=== PATIENT | female | born 1945 | race Two or more races ===

== ENCOUNTER 2023-05-28 00:17 | Inpatient (IN) | payer MEDICARE, OTHER ==
[~2023-05-28] VITALS: Ht 167.6 cm; Wt 74.8 kg
[2023-05-28] MEDS ORDERED: ADENOSINE 6 MG/2 ML VIAL IVP ONE ×3 (01:00→02:00)
[2023-05-28] MEDS ORDERED: ADENOSINE 6 MG/2 ML VIAL ONE ×4 (01:00→01:10)
[2023-05-28] MEDS ORDERED: PROPOFOL 20 ML IV ONE (01:14)
[2023-05-28 01:55] LABS: BASOPHILS # (AUTO) 0.1 K/uL (0.0-0.2); BASOPHILS % (AUTO) 1.2 % (0.0-2.0); EOSINOPHILS # (AUTO) 0.1 K/uL (0.0-0.7); EOSINOPHILS % (AUTO) 1.3 % (0.0-6.0); HEMATOCRIT 39 % (33-45); HEMOGLOBIN 12.7 g/dL (11.5-14.8); LYMPHOCYTES # (AUTO) 1.4 K/uL (0.8-4.8); LYMPHOCYTES % (AUTO) 18.5 % (20.0-44.0); MEAN CORPUSCULAR HEMOGLOBIN 31 PG (26.0-33.0); MEAN CORPUSCULAR HGB CONC 33 g/dl (31.0-36.0); MEAN CORPUSCULAR VOLUME 94 fL (82-100); MONOCYTES # (AUTO) 0.6 K/uL (0.1-1.30); MONOCYTES % (AUTO) 8.5 % (2.0-12.0); NEUTROPHILS # (AUTO) 5.2 K/uL (1.8-8.9); NEUTROPHILS % (AUTO) 70.5 % (43.0-81.0); PLATELET COUNT (AUTO) 295 K/uL (150-450); RED BLOOD CELL COUNT(AUTO) 4.14 MIL/uL (4.0-5.2); RED CELL DISTRIBUTION WIDTH 13.8 % (11.5-15.0); WHITE BLOOD COUNT (AUTO) 7.4 K/uL (4.3-11.0)
[2023-05-28] MEDS ORDERED: PROPOFOL 200 MG/20 ML VIAL IV ONE (02:00)
[2023-05-28 02:16] LABS: CALCIUM, SERUM 9.2 mg/dL (8.5-10.1); CARBON DIOXIDE 26 mmol/L (21-32); CHLORIDE 99 mmol/L (98-107); CREATININE 1.9 mg/dL (0.6-1.3); GLUCOSE 114 mg/dL (74-106); POTASSIUM 4.1 mmol/L (3.5-5.1); SODIUM SERUM 135 mmol/L (136-145); UREA NITROGEN, BLOOD 26 mg/dL (7-18)
[2023-05-28 02:19] LABS: ALANINE AMINOTRANSFERASE 18 U/L (12-78); ALBUMIN 3.3 g/dL (3.4-5.0); ALKALINE PHOSPHATASE 79 U/L (46-116); ASPARTATE AMINOTRANSFERASE 22 U/L (15-37); BILIRUBIN,DIRECT 0.2 mg/dL (0.0-0.2); BILIRUBIN,TOTAL 0.8 mg/dL (0.2-1.0); NT-PRO BNP 983 pg/mL (0-125); TOTAL PROTEIN, SERUM 7.5 g/dL (6.4-8.2)
[2023-05-28] MEDS ORDERED: IV NS 0.9% 1,000 ML IV PRN (02:30)
[2023-05-28] MEDS ORDERED: MAGNESIUM HYDROXIDE 30 ML UDC PO PRN (02:30)
[2023-05-28] MEDS ORDERED: HYDROCODONE/APAP 5/325MG TABLET PO PRN (02:30)
[2023-05-28] MEDS ORDERED: ACETAMINOPHEN 325 MG TABLET PO PRN (02:30)
[2023-05-28] MEDS ORDERED: MORPHINE SULFATE INJ 2 MG/ML DISP.SYRIN IV PRN (02:30)
[2023-05-28] MEDS ORDERED: ONDANSETRON HCL/PF 4 MG/2 ML VIAL IVP PRN (02:30)
[2023-05-28] MEDS ORDERED: TEMAZEPAM 15 MG CAPSULE PO PRN (02:30)
[2023-05-28] MEDS ORDERED: Z GUARD REMEDY 4 OZ OINT TP PRN (02:30)
[2023-05-28] MEDS ORDERED: MAG HYDROX/AL HYDROX/SIMETH 30 ML UDC PO PRN (02:30)
[2023-05-28] MEDS ORDERED: ASPIRIN 325 MG TABLET ONE (02:42)
[2023-05-28] MEDS: ASPIRIN 325 MG TABLET PO SCH ×2 (02:47→08:26)
[2023-05-28 03:00] VITALS: BP 150/79; TEMP 99.7; O2SAT 97
[2023-05-28 03:30] VITALS: BP 150/79; TEMP 99.7; O2SAT 97
[2023-05-28 07:00] VITALS: BP 154/100; TEMP 98.8; O2SAT 96
[2023-05-28] MEDS: PANTOPRAZOLE 40 MG TABLET.DR PO SCH (08:26)
[2023-05-28] MEDS ORDERED: PRED20TA PO (08:35)
[2023-05-28] MEDS ORDERED: RIVA10TA PO (08:35)
[2023-05-28] MEDS ORDERED: MYCO250C PO (08:35)
[2023-05-28] MEDS ORDERED: CYCL50CA6 PO (08:35)
[2023-05-28] MEDS ORDERED: GABA-532 PO (08:35)
[2023-05-28] MEDS: GABAPENTIN 100 MG CAPSULE PO SCH ×2 (10:25→18:05)
[2023-05-28] MEDS: RIVAROXABAN 15 MG TABLET PO SCH (10:27)
[2023-05-28] MEDS: predniSONE 20 MG TABLET PO SCH (10:33)
[2023-05-28] MEDS: MYCOPHENOLATE MOFETIL 250 MG CAPSULE PO SCH ×2 (10:45→18:05)
[2023-05-28] MEDS: VITAMINS A AND D 56.7 GM TUBE TP SCH (10:45)
[2023-05-28] MEDS: METOPROLOL TARTRATE 50 MG TABLET PO SCH ×2 (12:05→18:05)
[2023-05-28] MEDS ORDERED: IV 1/2NS 1000 ML 1,000 ML IV PRN (14:00)
[2023-05-28 16:00] VITALS: BP 145/83; TEMP 99.3; O2SAT 94
[2023-05-28 20:00] VITALS: BP 118/72; TEMP 98.9; O2SAT 93
[2023-05-28] MEDS: NITROGLYCERIN 0.4 MG/TAB BOTTLE SL PRN ×3 (22:29→22:44)
[2023-05-29] VITALS (7 sets, daily range): BP systolic 101–151; BP diastolic 67–98; TEMP 97.4–98.8; O2SAT 91–98
[2023-05-29] MEDS: METOPROLOL TARTRATE 50 MG TABLET PO SCH ×4 (00:27→18:03)
[2023-05-29 07:28] LABS: BASOPHILS % (AUTO) 0.6 % (0.0-2.0); EOSINOPHILS # (AUTO) 0.1 K/uL (0.0-0.7); EOSINOPHILS % (AUTO) 1.8 % (0.0-6.0); HEMATOCRIT 34 % (33-45); HEMOGLOBIN 11.3 g/dL (11.5-14.8); LYMPHOCYTES # (AUTO) 1.6 K/uL (0.8-4.8); LYMPHOCYTES % (AUTO) 24.3 % (20.0-44.0); MEAN CORPUSCULAR HEMOGLOBIN 31 PG (26.0-33.0); MEAN CORPUSCULAR HGB CONC 33 g/dl (31.0-36.0); MEAN CORPUSCULAR VOLUME 94 fL (82-100); MONOCYTES # (AUTO) 0.9 K/uL (0.1-1.30); MONOCYTES % (AUTO) 13.5 % (2.0-12.0); NEUTROPHILS % (AUTO) 59.8 % (43.0-81.0); PLATELET COUNT (AUTO) 255 K/uL (150-450); RED BLOOD CELL COUNT(AUTO) 3.61 MIL/uL (4.0-5.2); RED CELL DISTRIBUTION WIDTH 13.9 % (11.5-15.0); WHITE BLOOD COUNT (AUTO) 6.8 K/uL (4.3-11.0)
[2023-05-29 07:40] LABS: CALCIUM, SERUM 8.8 mg/dL (8.5-10.1); CARBON DIOXIDE 23 mmol/L (21-32); CHLORIDE 103 mmol/L (98-107); CREATININE 1.6 mg/dL (0.6-1.3); GLUCOSE 94 mg/dL (74-106); MAGNESIUM 1.9 mg/dL (1.8-2.4); PHOSPHORUS 3.6 mg/dL (2.5-4.9); POTASSIUM 3.9 mmol/L (3.5-5.1); SODIUM SERUM 136 mmol/L (136-145); UREA NITROGEN, BLOOD 30 mg/dL (7-18)
[2023-05-29 07:52] LABS: CHOLESTEROL 161 mg/dL (<200); HDL CHOLESTEROL 67 mg/dL (40-60); LDL 77 mg/dL (0-99); THYROID STIMULATING HORMONE 2.551 uIU/mL (0.358-3.74); TRIGLYCERIDES 73 mg/dL (30-150)
[2023-05-29] MEDS: predniSONE 20 MG TABLET PO SCH (08:47)
[2023-05-29] MEDS: ASPIRIN 81 MG TAB.CHEW PO SCH (08:47)
[2023-05-29] MEDS: RIVAROXABAN 15 MG TABLET PO SCH (08:57)
[2023-05-29] MEDS: MYCOPHENOLATE MOFETIL 250 MG CAPSULE PO SCH ×2 (08:58→18:02)
[2023-05-29] MEDS: PANTOPRAZOLE 40 MG TABLET.DR PO SCH (08:58)
[2023-05-29] MEDS: VITAMINS A AND D 56.7 GM TUBE TP SCH (08:59)
[2023-05-29] MEDS: GABAPENTIN 100 MG CAPSULE PO SCH ×2 (08:59→18:02)
[2023-05-29 09:09] LABS: IRON, SERUM 45 ug/dl (50-175); TOTAL IRON BINDING CAPACITY 289 ug/dl (250-450)
[2023-05-29 09:38] LABS: FERRITIN 116 ng/mL (8-388)
[2023-05-29] MEDS: POTASSIUM CHLORIDE 20 MEQ TAB.PRT.SR PO SCH ×4 (10:25→18:04)
[2023-05-29] MEDS: FUROSEMIDE 40 MG/4 ML VIAL IV SCH ×3 (10:25→18:01)
[2023-05-29 16:08] LABS: CREATININE, URINE 23.7 MG/DL (30.0-125.0); URINE TOTAL PROTEIN 2.2 mg/dL (0-11.9)
[2023-05-29 17:05] LABS: APPEARANCE,URINE CLEAR (CLEAR); BILIRUBIN,URINE NEGATIVE (NEGATIVE); BLOOD, URINE TRACE-INTA Ery/uL (NEGATIVE); COLOR,URINE OTHER (YELLOW); KETONES,URINE NEGATIVE (NEGATIVE); LEUKOCYTE ESTERASE ,URINE NEGATIVE (NEGATIVE); NITRITE, URINE NEGATIVE (NEGATIVE); PROTEIN,URINE NEGATIVE (NEGATIVE); UGLUCOSE NEGATIVE (NEGATIVE); UROBILINOGEN,URINE 0.2 EU/dL (0.2)
[2023-05-29 19:55] LABS: EOSINOPHIL,URINE None Seen
[2023-05-29 20:48] LABS: RBC,URINE 0-2 /HPF (0-2); WBC,URINE NONE SEEN /HPF (0-3)
[2023-05-29 20:49] LABS: ADD URINE CULTURE NO; BACTERIA,URINE Rare /HPF (None Seen); SQUAMOUS EPITHELIAL CELL,UR Rare /HPF (None Seen)
[2023-05-30] MEDS: METOPROLOL TARTRATE 50 MG TABLET PO SCH ×3 (00:27→12:00)
[2023-05-30 07:00] VITALS: BP 111/55; TEMP 98.8; O2SAT 98
[2023-05-30 07:06] LABS: BASOPHILS % (AUTO) 0.4 % (0.0-2.0); EOSINOPHILS # (AUTO) 0.1 K/uL (0.0-0.7); EOSINOPHILS % (AUTO) 1.9 % (0.0-6.0); HEMATOCRIT 35 % (33-45); LYMPHOCYTES # (AUTO) 1.8 K/uL (0.8-4.8); LYMPHOCYTES % (AUTO) 22.6 % (20.0-44.0); MEAN CORPUSCULAR HEMOGLOBIN 32 PG (26.0-33.0); MEAN CORPUSCULAR HGB CONC 34 g/dl (31.0-36.0); MEAN CORPUSCULAR VOLUME 93 fL (82-100); MONOCYTES # (AUTO) 0.9 K/uL (0.1-1.30); MONOCYTES % (AUTO) 11.6 % (2.0-12.0); NEUTROPHILS # (AUTO) 5.1 K/uL (1.8-8.9); NEUTROPHILS % (AUTO) 63.5 % (43.0-81.0); PLATELET COUNT (AUTO) 259 K/uL (150-450); RED BLOOD CELL COUNT(AUTO) 3.75 MIL/uL (4.0-5.2); RED CELL DISTRIBUTION WIDTH 13.6 % (11.5-15.0)
[2023-05-30 07:21] LABS: ALANINE AMINOTRANSFERASE 11 U/L (12-78); ALKALINE PHOSPHATASE 66 U/L (46-116); ASPARTATE AMINOTRANSFERASE 20 U/L (15-37); BILIRUBIN,TOTAL 0.5 mg/dL (0.2-1.0); CARBON DIOXIDE 28 mmol/L (21-32); CHLORIDE 103 mmol/L (98-107); GLUCOSE 97 mg/dL (74-106); MAGNESIUM 1.9 mg/dL (1.8-2.4); PHOSPHORUS 4.5 mg/dL (2.5-4.9); POTASSIUM 4.4 mmol/L (3.5-5.1); SODIUM SERUM 138 mmol/L (136-145); UREA NITROGEN, BLOOD 48 mg/dL (7-18)
[2023-05-30] MEDS ORDERED: METO50TA16 PO (07:33)
[2023-05-30] MEDS ORDERED: ASPI-1169 PO (07:33)
[2023-05-30] MEDS ORDERED: predniSONE 5 MG TABLET PO SCH (09:00)
[2023-05-30] MEDS: MYCOPHENOLATE MOFETIL 250 MG CAPSULE PO SCH (09:08)
[2023-05-30] MEDS: PANTOPRAZOLE 40 MG TABLET.DR PO SCH (09:08)
[2023-05-30] MEDS: ASPIRIN 81 MG TAB.CHEW PO SCH (09:08)
[2023-05-30] MEDS: VITAMINS A AND D 56.7 GM TUBE TP SCH (09:09)
[2023-05-30] MEDS: GABAPENTIN 100 MG CAPSULE PO SCH (09:09)
== END 2023-05-30 13:13 | disposition home or self-care (01) | DRG 280 ==
LOC: ER 00:19 → TELE 01:48
PROVIDERS: ATTEND Internal Medicine
PROC: 5A2204Z Restoration of Cardiac Rhythm, Single (ICD-10-PCS; principal; 2023-05-28)
DX: I47.10 Supraventricular tachycardia, unspecified (principal); I21.A1 Myocardial infarction type 2; I50.31 Acute diastolic (congestive) heart failure; I13.0 Hypertensive heart and chronic kidney disease with heart failure and stage 1 through stage 4 chronic kidney disease, or unspecified chronic kidney disease; N17.9 Acute kidney failure, unspecified; Z94.2 Lung transplant status; D84.821 Immunodeficiency due to drugs; J84.9 Interstitial pulmonary disease, unspecified; I48.0 Paroxysmal atrial fibrillation; Z20.822 Contact with and (suspected) exposure to COVID-19; Z86.79 Personal history of other diseases of the circulatory system; Z98.890 Other specified postprocedural states; N18.30 Chronic kidney disease, stage 3 unspecified; Z91.013 Allergy to seafood; Z79.01 Long term (current) use of anticoagulants; Z79.52 Long term (current) use of systemic steroids; Z79.60 Long term (current) use of unspecified immunomodulators and immunosuppressants; L85.3 Xerosis cutis; Z79.899 Other long term (current) drug therapy
CPT/HCPCS: 36415; 71045-TC; 76770-TC; 80048-TC; 80053-TC; 80061-TC; 80076-TC; 81001; 82570-TC; 82728-TC; 83540-TC; 83735-TC; 83880; 84100-TC; 84300-TC; 84443-TC; 84484-TC; 85025-TC; 87040-TC; 93307-TC; A4223; G0378; J0153; J1940; J2704; J7030; J7502; J7512; J7517